=== PATIENT | female | born 1965 | race Two or more races ===

== ENCOUNTER 2017-06-19 05:33 | Emergency (ER) | payer SELFPAY ==
--- NOTE | 2017-06-19 06:00 | NUR ---
CALLED FOR PT IN [place], NO RESPONSE.
--- NOTE | 2017-06-19 06:34 | NUR ---
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
== END 2017-06-19 06:36 | disposition left against medical advice (07) ==
LOC: ER 05:35
DX: Z53.21 Procedure and treatment not carried out due to patient leaving prior to being seen by health care provider (principal)